=== PATIENT | female | born 1975 | race Caucasian/White ===

== ENCOUNTER 2018-11-03 10:03 | Emergency (ER) | payer OTHER, SELFPAY ==
[2018-11-03 10:15] VITALS: BP 132/78; PULSE 75; RESP 20; TEMP 36.3; O2SAT 96
--- NOTE | 2018-11-03 10:24 | DI.RAD.S_ITS ---
PROCEDURE: XR CHEST 2V INDICATIONS: cough, sob TECHNIQUE: 2 views of the chest were acquired. COMPARISON: None. FINDINGS: Surgical changes and devices: None. Lungs and pleura: Lungs are clear. No pleural effusions or pneumothorax. Mediastinum: Mediastinal contours are normal. Heart size is normal. Bones and chest wall: No suspicious bony abnormalities. Soft tissues appear unremarkable. IMPRESSION: No acute pulmonary process. Dictated by: Gertrudis Chowdhury M.D. on 11/03/2018 at 10:51 Approved by: Gertrudis Chowdhury M.D. on 11/03/2018 at 10:51
--- NOTE | 2018-11-03 10:26 | ED.URI ---
HPI - URI/Sore Throat <JARAD Pearce-BC - Last Filed: 11/03/18 11:52> General Chief Complaint: Upper Respiratory Symptoms Stated Complaint: bharath lowe Time Seen by Provider: 11/03/18 10:17 Source: patient Mode of arrival: ambulatory Limitations: no limitations History of Present Illness HPI Narrative: Patient is a 43-year-old female smoker with history of GERD who presents to the emergency department with a chief complaint of productive cough and shortness of breath for 2-3 days. She states she felt cold coming on 4 days ago and feels like it evolves to something worse. She complains of chest congestion, productive cough, and states she is having coughing fits so bad she becomes incontinent of urine. She denies any related abdominal pain, vomiting or diarrhea. She denies any sore throat that is not affiliated with cough or ear pain. she has not taken anything at home to feel better. She complains of wheezing. She denies any history of asthma, COPD, etc. She states ?I do not go to the doctor? Related Data Previous Rx's Medication Instructions Recorded albuterol sulfate [Ventolin HFA] 2 puff INHALATION Q4-6H PRN #18 11/03/18 gram benzonatate [Tessalon Perles] 200 mg PO BID-TID PRN #30 cap 11/03/18 Allergies Allergy/AdvReac Type Severity Reaction Status Date / Time codeine Allergy Unknown Verified 11/03/18 10:26 Review of Systems <JARAD Pearce-BC - Last Filed: 11/03/18 11:52> Constitutional Denies body ache(s), Denies chills, Reports fatigue, Denies headache(s), Reports lethargy and Denies poor appetite Eyes Denies change in vision, Denies eye discharge, Denies irritation and Denies loss of vision ENT Ears, Nose, Mouth, and Throat: Denies headache(s) Cardiovascular Denies chest pain, Denies irregular heart rhythm, Denies lightheadedness, Denies palpitations, Reports dyspnea and Denies orthopnea Respiratory Reports as per HPI, Reports chest congestion, Reports cough, Reports pain with cough, Reports dyspnea and Reports wheezing Gastrointestinal Gastrointestinal: Denies abdominal pain, Denies change in bowel habits, Denies diarrhea, Denies nausea and Denies vomiting Genitourinary Denies hematuria, Denies flank pain, Denies urinary incontinence and Denies urinary urgency Musculoskeletal Denies back pain, Denies muscle weakness, Denies numbness and Denies tingling Integumentary/Breasts Denies pruritus, Denies erythema, Denies rash and Denies wounds Neurologic Denies headache(s), Denies loss of vision, Denies numbness and Denies tingling Endocrine Reports fatigue and Denies palpitations Hematologic/Lymphatic Denies easy bruising Allergic/Immunologic Reports wheezing PFSH <MANDO Pearce - Last Filed: 11/03/18 11:52> Medical History (Updated 11/03/18 @ 11:28 by MANDO Pearce) H/O gastroesophageal reflux (GERD) (Acute) Social History Smoking Status: Current every day smoker Social History Smoking Status: Current every day smoker Exam <MANDO Pearce - Last Filed: 11/03/18 11:52> Initial Vital Signs Initial Vital Signs: Vital Signs Temperature 97.3 F L 11/03/18 10:15 Pulse Rate 75 11/03/18 10:15 Respiratory Rate 20 11/03/18 10:15 Blood Pressure 132/78 11/03/18 10:15 Pulse Oximetry 96 11/03/18 10:15 Const General: cooperative and well developed Nutritional Appearance: well nourished Orientation: alert, awake, oriented x3 and not confused [facility] Head: normocephalic and atraumatic Ears: external ears normal and TM's normal bilaterally Nose: external nose normal and No nasal discharge Face and sinus: sinuses nontender, face symmetric, no sinus tenderness and No dry mucous membranes Mouth: oral mucosae normal and moist mucous membranes Teeth and gingiva: dentition normal Throat: tonsils normal and uvula midline Eyes General: appearance normal, both eyes and all related structures Eyelids: eyelids normal Conjunctivae: conjunctivae normal Sclera: sclerae normal Pupils: PERRL EOM: EOM intact bilaterally Neck Neck: normal visual inspection, trachea midline, No lymphadenopathy, No midline deformity and No JVD Lymphatic: No lymphedema Chest Chest: normal inspection of the chest Resp Effort & Inspection: normal respiratory effort, able to speak in complete sentences, cough Quality of cough: actively coughing, no grunting, not labored, no nasal flaring, no respiratory distress and no use of accessory muscles Auscultation: clear to auscultation bilaterally, no rales, no rhonchi and wheezes expiratory wheezes, inspiratory wheezes and upper bilaterally Cardio Rate: regular rate Rhythm: regular rhythm Heart Sounds: no click, no gallops, no murmurs and no rubs Pulses: normal peripheral pulses GI Inspection: non-distended Palpation: soft, no hepatosplenomegaly, No guarding, No pulsatile mass and No tender Auscultation: normal bowel sounds Neuro General: alert, oriented x3, gait normal and no focal motor deficits Speech: speech normal Psych Appearance: well kempt Mental Status: mental status grossly normal Attitude: cooperative Thought Content: normal and suicidality Judgment: judgment good <Cyndie Torres MD - Last Filed: 11/03/18 16:24> Initial Vital Signs Initial Vital Signs: Vital Signs Temperature 97.3 F L 11/03/18 10:15 Pulse Rate 75 11/03/18 10:15 Respiratory Rate 20 11/03/18 10:15 Blood Pressure 132/78 11/03/18 10:15 Pulse Oximetry 96 11/03/18 10:15 Course <MANDO Pearce - Last Filed: 11/03/18 11:52> Orders Ordered: ED Orders 11/03/18 10:24 XR chest 2V Stat RT Consult Eval and Treat Now 11/03/18 10:34 Influenza A and B by PCR Rapid Stat Discontinued Medications Albuterol/Ipratropium (Duoneb) 3 ml INH Q1H PRN PRN Reason: Shortness Of Breath Last Admin: 11/03/18 10:31 Dose: 3 ml Vital Signs - 8 hr 11/03/18 10:15 11/03/18 11:30 Temperature 97.3 F L Pulse Rate 75 76 Respiratory Rate 20 18 Blood Pressure 132/78 Pulse Oximetry 96 98 <Cyndie Torres MD - Last Filed: 11/03/18 16:24> Orders Ordered: ED Orders 11/03/18 10:24 XR chest 2V Stat RT Consult Eval and Treat Now 11/03/18 10:34 Influenza A and B by PCR Rapid Stat Discontinued Medications Albuterol/Ipratropium (Duoneb) 3 ml INH Q1H PRN PRN Reason: Shortness Of Breath Last Admin: 11/03/18 10:31 Dose: 3 ml Vital Signs - 8 hr 11/03/18 10:15 11/03/18 11:30 Temperature 97.3 F L Pulse Rate 75 76 Respiratory Rate 20 18 Blood Pressure 132/78 Pulse Oximetry 96 98 MDM - URI/Sore Throat <MANDO Pearce - Last Filed: 11/03/18 11:52> Lab Data Lab Results 11/03/18 Range/Units 10:34 Influenza A & B (PCR) Negative (Negative) Imaging Data Chest x-ray: Radiologist's impression: [address] [address] XRay Report Signed Patient: Kat Cisse MMR#: [id number] : 1975Acct:[id number] Age/Sex: 43 / FDate of Service: 11/03/18 Loc: ED Accession Number: [id number] Procedure: XR chest 2V Ordering Provider: Ami Galan PROCEDURE: XR CHEST 2V INDICATIONS: cough, sob TECHNIQUE: 2 views of the chest were acquired. COMPARISON: None. FINDINGS: Surgical changes and devices: None. Lungs and pleura: Lungs are clear. No pleural effusions or pneumothorax. Mediastinum: Mediastinal contours are normal. Heart size is normal. Bones and chest wall: No suspicious bony abnormalities. Soft tissues appear unremarkable. IMPRESSION: No acute pulmonary process. Dictated by: Gertrudis Chowdhury M.D. on 11/03/2018 at 10:51 Approved by: Gertrudis Chowdhury M.D. on 11/03/2018 at 10:51 [facility] Narrative Medical decision making narrative: The patient is a 43-year-old female smoker who presents with a chief complaint of cough for a few days. She is afebrile, hemodynamically stable a nontoxic appearing the emergency department. She has no acute findings on her chest x-ray. She has a negative flu swab. She did respond well to a nebulizer treatment given in the emergency department. I encouraged her to stop smoking. I did give her prescription of Ventolin, as well as a prescription of Tessalon Perles. I encouraged her to obtain a primary care physician gave her contact information for the health client resource specialist. I discussed at length return precautions of chest pain, difficulty breathing, fever. Patient had no questions or concerns upon discharge. <Cyndie Torres MD - Last Filed: 11/03/18 16:24> Lab Data Lab Results 11/03/18 Range/Units 10:34 Influenza A & B (PCR) Negative (Negative) Discharge Plan Departure Patient Disposition: Home Clinical Impression: Wheezing, Bronchitis Discharge Date/Time: 11/03/18 11:33 Interventions: ED Discharge Assessment Last Done: 11/03/18 11:30 Instructions: DI for Acute Bronchitis, DI for Viral Upper Respiratory Infection -- Adult Activity Restrictions/Additional Instructions: Your chest x-ray came back normal today. Your flu swab came back normal. Please follow up with primary care provider. Please monitor for fever, vomiting, diarrhea or signs of systemic illness. Come back to the emergency department for any acute concerns including chest pain, severe shortness of breath etc. Please take [id number] medications and remedies as needed and able. I have given you a prescription for an inhaler, as well as a prescription for cough medication. Please follow up with primary care provider. If you need one you can always contact the health client resource specialist at [facility]. The phone number is [phone]. Prescriptions: New benzonatate [Tessalon Perles] 100 mg capsule 200 mg PO BID-TID PRN (Reason: cough) Qty: 30 RF: 0 albuterol sulfate [Ventolin HFA] 90 mcg/actuation HFA aerosol inhaler 2 puff INHALATION Q4-6H PRN (Reason: shortness of breath or wheezing) Qty: 18 RF: 0
[2018-11-03] MEDS: ALBUTEROL/IPRATROPIUM 3 ML AMPUL INH (10:31)
--- NOTE | 2018-11-03 10:31 | ED_ITS ---
HPI - URI/Sore Throat <JARAD Pearce-BC - Last Filed: 11/03/18 11:52> General Chief Complaint: Upper Respiratory Symptoms Stated Complaint: bharath lowe Time Seen by Provider: 11/03/18 10:17 Source: patient Mode of arrival: ambulatory Limitations: no limitations History of Present Illness HPI Narrative: Patient is a 43-year-old female smoker with history of GERD who presents to the emergency department with a chief complaint of productive cough and shortness of breath for 2-3 days. She states she felt cold coming on 4 days ago and feels like it evolves to something worse. She complains of chest congestion, productive cough, and states she is having coughing fits so bad she becomes incontinent of urine. She denies any related abdominal pain, vomiting or diarrhea. She denies any sore throat that is not affiliated with cough or ear pain. she has not taken anything at home to feel better. She complains of wheezing. She denies any history of asthma, COPD, etc. She states ?I do not go to the doctor? Related Data Previous Rx's Medication Instructions Recorded albuterol sulfate [Ventolin HFA] 2 puff INHALATION Q4-6H PRN #18 11/03/18 gram benzonatate [Tessalon Perles] 200 mg PO BID-TID PRN #30 cap 11/03/18 Allergies Allergy/AdvReac Type Severity Reaction Status Date / Time codeine Allergy Unknown Verified 11/03/18 10:26 Review of Systems <JARAD Pearce-BC - Last Filed: 11/03/18 11:52> Constitutional Denies body ache(s), Denies chills, Reports fatigue, Denies headache(s), Reports lethargy and Denies poor appetite Eyes Denies change in vision, Denies eye discharge, Denies irritation and Denies loss of vision ENT Ears, Nose, Mouth, and Throat: Denies headache(s) Cardiovascular Denies chest pain, Denies irregular heart rhythm, Denies lightheadedness, Denies palpitations, Reports dyspnea and Denies orthopnea Respiratory Reports as per HPI, Reports chest congestion, Reports cough, Reports pain with cough, Reports dyspnea and Reports wheezing Gastrointestinal Gastrointestinal: Denies abdominal pain, Denies change in bowel habits, Denies diarrhea, Denies nausea and Denies vomiting Genitourinary Denies hematuria, Denies flank pain, Denies urinary incontinence and Denies urinary urgency Musculoskeletal Denies back pain, Denies muscle weakness, Denies numbness and Denies tingling Integumentary/Breasts Denies pruritus, Denies erythema, Denies rash and Denies wounds Neurologic Denies headache(s), Denies loss of vision, Denies numbness and Denies tingling Endocrine Reports fatigue and Denies palpitations Hematologic/Lymphatic Denies easy bruising Allergic/Immunologic Reports wheezing PFSH <MANDO Pearce - Last Filed: 11/03/18 11:52> Medical History (Updated 11/03/18 @ 11:28 by MANDO Pearce) H/O gastroesophageal reflux (GERD) (Acute) Social History Smoking Status: Current every day smoker Social History Smoking Status: Current every day smoker Exam <MANDO Pearce - Last Filed: 11/03/18 11:52> Initial Vital Signs Initial Vital Signs: Vital Signs Temperature 97.3 F L 11/03/18 10:15 Pulse Rate 75 11/03/18 10:15 Respiratory Rate 20 11/03/18 10:15 Blood Pressure 132/78 11/03/18 10:15 Pulse Oximetry 96 11/03/18 10:15 Const General: cooperative and well developed Nutritional Appearance: well nourished Orientation: alert, awake, oriented x3 and not confused [facility] Head: normocephalic and atraumatic Ears: external ears normal and TM's normal bilaterally Nose: external nose normal and No nasal discharge Face and sinus: sinuses nontender, face symmetric, no sinus tenderness and No dry mucous membranes Mouth: oral mucosae normal and moist mucous membranes Teeth and gingiva: dentition normal Throat: tonsils normal and uvula midline Eyes General: appearance normal, both eyes and all related structures Eyelids: eyelids normal Conjunctivae: conjunctivae normal Sclera: sclerae normal Pupils: PERRL EOM: EOM intact bilaterally Neck Neck: normal visual inspection, trachea midline, No lymphadenopathy, No midline deformity and No JVD Lymphatic: No lymphedema Chest Chest: normal inspection of the chest Resp Effort & Inspection: normal respiratory effort, able to speak in complete sentences, cough Quality of cough: actively coughing, no grunting, not labored, no nasal flaring, no respiratory distress and no use of accessory muscles Auscultation: clear to auscultation bilaterally, no rales, no rhonchi and wheezes expiratory wheezes, inspiratory wheezes and upper bilaterally Cardio Rate: regular rate Rhythm: regular rhythm Heart Sounds: no click, no gallops, no murmurs and no rubs Pulses: normal peripheral pulses GI Inspection: non-distended Palpation: soft, no hepatosplenomegaly, No guarding, No pulsatile mass and No tender Auscultation: normal bowel sounds Neuro General: alert, oriented x3, gait normal and no focal motor deficits Speech: speech normal Psych Appearance: well kempt Mental Status: mental status grossly normal Attitude: cooperative Thought Content: normal and suicidality Judgment: judgment good <Cyndie Torres MD - Last Filed: 11/03/18 16:24> Initial Vital Signs Initial Vital Signs: Vital Signs Temperature 97.3 F L 11/03/18 10:15 Pulse Rate 75 11/03/18 10:15 Respiratory Rate 20 11/03/18 10:15 Blood Pressure 132/78 11/03/18 10:15 Pulse Oximetry 96 11/03/18 10:15 Course <MANDO Pearce - Last Filed: 11/03/18 11:52> Orders Ordered: ED Orders 11/03/18 10:24 XR chest 2V Stat RT Consult Eval and Treat Now 11/03/18 10:34 Influenza A and B by PCR Rapid Stat Discontinued Medications Albuterol/Ipratropium (Duoneb) 3 ml INH Q1H PRN PRN Reason: Shortness Of Breath Last Admin: 11/03/18 10:31 Dose: 3 ml Vital Signs - 8 hr 11/03/18 10:15 11/03/18 11:30 Temperature 97.3 F L Pulse Rate 75 76 Respiratory Rate 20 18 Blood Pressure 132/78 Pulse Oximetry 96 98 <Cyndie Torres MD - Last Filed: 11/03/18 16:24> Orders Ordered: ED Orders 11/03/18 10:24 XR chest 2V Stat RT Consult Eval and Treat Now 11/03/18 10:34 Influenza A and B by PCR Rapid Stat Discontinued Medications Albuterol/Ipratropium (Duoneb) 3 ml INH Q1H PRN PRN Reason: Shortness Of Breath Last Admin: 11/03/18 10:31 Dose: 3 ml Vital Signs - 8 hr 11/03/18 10:15 11/03/18 11:30 Temperature 97.3 F L Pulse Rate 75 76 Respiratory Rate 20 18 Blood Pressure 132/78 Pulse Oximetry 96 98 MDM - URI/Sore Throat <MANDO Pearce - Last Filed: 11/03/18 11:52> Lab Data Lab Results 11/03/18 Range/Units 10:34 Influenza A & B (PCR) Negative (Negative) Imaging Data Chest x-ray: Radiologist's impression: [address] [address] XRay Report Signed Patient: Kat Cisse MMR#: [id number] : 1975Acct:[id number] Age/Sex: 43 / FDate of Service: 11/03/18 Loc: ED Accession Number: [id number] Procedure: XR chest 2V Ordering Provider: Ami Galan PROCEDURE: XR CHEST 2V INDICATIONS: cough, sob TECHNIQUE: 2 views of the chest were acquired. COMPARISON: None. FINDINGS: Surgical changes and devices: None. Lungs and pleura: Lungs are clear. No pleural effusions or pneumothorax. Mediastinum: Mediastinal contours are normal. Heart size is normal. Bones and chest wall: No suspicious bony abnormalities. Soft tissues appear unremarkable. IMPRESSION: No acute pulmonary process. Dictated by: Gertrudis Chowdhury M.D. on 11/03/2018 at 10:51 Approved by: Gertrudis Chowdhury M.D. on 11/03/2018 at 10:51 [facility] Narrative Medical decision making narrative: The patient is a 43-year-old female smoker who presents with a chief complaint of cough for a few days. She is afebrile, hemodynamically stable a nontoxic appearing the emergency department. She has no acute findings on her chest x-ray. She has a negative flu swab. She did respond well to a nebulizer treatment given in the emergency department. I encouraged her to stop smoking. I did give her prescription of Ventolin, as well as a prescription of Tessalon Perles. I encouraged her to obtain a primary care physician gave her contact information for the health rn clinical resource. I discussed at length return precautions of chest pain, difficulty breathing, fever. Patient had no questions or concerns upon discharge. <Cyndie Torres MD - Last Filed: 11/03/18 16:24> Lab Data Lab Results 11/03/18 Range/Units 10:34 Influenza A & B (PCR) Negative (Negative) Discharge Plan Departure Patient Disposition: Home Clinical Impression: Wheezing, Bronchitis Discharge Date/Time: 11/03/18 11:33 Interventions: ED Discharge Assessment Last Done: 11/03/18 11:30 Instructions: DI for Acute Bronchitis, DI for Viral Upper Respiratory Infection -- Adult Activity Restrictions/Additional Instructions: Your chest x-ray came back normal today. Your flu swab came back normal. Please follow up with primary care provider. Please monitor for fever, vomiting, diarrhea or signs of systemic illness. Come back to the emergency department for any acute concerns including chest pain, severe shortness of breath etc. Please take [id number] medications and remedies as needed and able. I have given you a prescription for an inhaler, as well as a prescription for cough medication. Please follow up with primary care provider. If you need one you can always contact the health rn clinical resource at [facility]. The phone number is [phone]. Prescriptions: New benzonatate [Tessalon Perles] 100 mg capsule 200 mg PO BID-TID PRN (Reason: cough) Qty: 30 RF: 0 albuterol sulfate [Ventolin HFA] 90 mcg/actuation HFA aerosol inhaler 2 puff INHALATION Q4-6H PRN (Reason: shortness of breath or wheezing) Qty: 18 RF: 0
[2018-11-03 10:54] LABS: Influenza A and B by PCR Rapid Negative (Negative)
[2018-11-03 11:30] VITALS: PULSE 76; RESP 18; O2SAT 98
== END 2018-11-03 11:33 | disposition home or self-care (01) ==
PROVIDERS: Emergency Provider Nurse Practitioner Family
DX: J40 Bronchitis, not specified as acute or chronic (principal)
CPT/HCPCS: 71046; 87400; 99282; 99283

== ENCOUNTER → 2018-12-01 08:10 | Outpatient (CLI) | payer OTHER, SELFPAY ==
[2018-12-01 08:29] LABS: Add Manual Diff / Slide Review NO; Basophils Absolute Auto 100 /uL (0-100); Basophils Percent Auto 0.7 % (0-2); Eosinophils Absolute Auto 200 /uL (0-450); Eosinophils Percent Auto 2.3 % (2-4); Hemoglobin 14.8 g/dL (12.0-16.0); Lymphocytes Absolute Auto 3400 /uL (1100-4500); Lymphocytes Percent Auto 41.3 % (25-40); Mean Corpuscular HGB Conc 34.5 % (30-36); Mean Corpuscular Hemoglobin 31.9 PG (26-34); Mean Corpuscular Volume 92.5 fL (80-100); Monocytes Absolute Auto 700 /uL (0-900); Monocytes Percent Auto 8.5 % (3-14); Neutrophils Absolute Auto 3900 /uL (1500-7000); Neutrophils Percent Auto 47.2 % (50-75); Platelet Count 234 X10^3/uL (150-400); Red Blood Cell Count 4.65 X10^6/uL (4.0-5.2); Red Cell Distribution Width 12.9 % (11.6-14.8); White Blood Cell Count 8.3 X10^3/uL (4.5-11.0)
[2018-12-01 08:56] LABS: Free T4, Direct Thyroxine 0.95 ng/dL (0.78-2.19)
[2018-12-01 09:09] LABS: Thyroid Stimulating Hormone 5.93 uIU/mL (0.47-4.68)
[2018-12-01 10:57] LABS: BUN Creatinine Ratio 12.5 (6-22); Blood Urea Nitrogen 10 mg/dL (7-17); Calcium 9.2 mg/dL (8.4-10.2); Carbon Dioxide 25 mmol/L (22-32); Chloride 104 mmol/L (98-107); Cholesterol 205 mg/dL (140-199); Estimated Glomerular Filt Rate > 60.0 mL/min (>60); Glucose 114 mg/dL (70-100); HDL Cholesterol 45 mg/dL (40-60); HEMOLYSIS < 15 (0-50); LDL Cholesterol Calculated 131 mg/dL (<100); Potassium 4.4 mmol/L (3.4-5.1); Sodium 138 mmol/L (137-145); Triglycerides 145 mg/dL (35-150)
[2018-12-01 11:14] LABS: Vitamin D 25 Hydroxy (D3) 20.3 ng/mL (30.0-100.0)
[2018-12-03 17:27] LABS: Triiodothyronine T3 Total 162 ng/dL (76-181)
== END ==
LOC: LAB 08:11
PROVIDERS: Visit Provider Internal Medicine
DX: E55.9 Vitamin D deficiency, unspecified (principal); R53.83 Other fatigue; E03.9 Hypothyroidism, unspecified; E66.9 Obesity, unspecified
CPT/HCPCS: 36415; 80048; 80061; 82306; 84439; 84443; 84480; 85025

== ENCOUNTER → 2021-01-30 14:41 | Outpatient (CLI) | payer OTHER, MEDICAID, SELFPAY ==
[2021-01-30 15:45] LABS: COVID19 -Nasal RAPID Negative (Negative)
== END ==
PROVIDERS: PCP Registered Nurse Diabetes Educator; Visit Provider Surgery
DX: Z20.822 Contact with and (suspected) exposure to COVID-19 (principal)
CPT/HCPCS: 87635; C9803

== ENCOUNTER 2021-01-31 12:25 | Day surgery (SDC) | payer OTHER, MEDICAID, SELFPAY ==
[2021-01-31] VITALS (8 sets, daily range): BP systolic 106–138; BP diastolic 60–88; PULSE 57–81; RESP 14–18; TEMP 36.2–36.8; O2SAT 95–98; BMI 36.0
--- NOTE | 2021-01-31 | PATH_ITS ---
[facility] Accession Number: [id number] . 01 Material submitted: . rectum - RECTAL POLYP . 02 Diagnosis: Rectum, Polyp, Biopsy: Hyperplastic polyp. [facility] 02/05/2021 1531 Local . 02 Electronically signed: . Anna Blanco MD, Pathologist NPI- [id number] . 01 Gross description: . RECTAL POLYP: Received in formalin is 1 fragment(s) of richter, soft tissue measuring 0.9 x 0.2 x 0.2 cm submitted entirely in 1 cassette(s) /RUTH 02/01/2021 0832 Local . 02 Pathologist provided ICD-10: K62.1 . 02 CPT . 041857 Performed at: [address] [facility] Cyt[facility] [address] [id number] MD Dale Colin MD Phone: [phone] Performed at: 02 [facility] [place] [address] [place], [place] [id number] MD Anna Blanco MD Phone: [phone]
[2021-01-31] MEDS: LACTATED RINGERS 1,000 ML 84 ML IV (12:37)
--- NOTE | 2021-01-31 13:42 | PM.PREOP ---
Pre-operative Note Interval Note History & Physical reviewed/Exam performed by Physician: Yes Changes to H&P: No
[2021-01-31] MEDS: LIDOCAINE 4% SOLN 50 ML 20 ML TOP (13:49)
[2021-01-31] MEDS: fentaNYL 250 MCG/5 ML INJ IV (14:03)
[2021-01-31] MEDS: MIDAZOLAM 5 MG/5 ML VIAL IV (14:03)
[2021-01-31] MEDS: ONDANSETRON 4 MG/2 ML INJ IV ×2 (14:06→14:54)
--- NOTE | 2021-01-31 14:20 | P.OP.ENDO_ITS ---
Operative Date/Time/Diagnoses Date of procedure: 01/31/21 Time of procedure: 14:20 Pre-op diagnosis: dysphasia and rectal bleeding Post-op diagnosis: same Procedure & Clinicians Study performed: Esophagoduodenoscopy and colonoscopy Same procedure as scheduled: Yes Indications: Esophageal dysphagia and blood per rectum Surgeon: Andrea Nieves Procedure Notes Procedure in detail: Medications: Conscious sedation using 8mg IV midazolam and 250mcg IV of fentanyl The history and physical was performed/updated and the patient is ASA class is 2. The procedure was discussed in detail with the patient. Potential risks complications including infection, bleeding, missed diagnosis, perforation, need for surgery, and were explained. Their questions were answered and informed consent was obtained. Patient was brought to the procedure room and placed standard monitoring equipment. The patient's vital signs were monitored continuously throughout the entire procedure. Prior to starting time-out was performed. The patient was placed in the left lateral recumbent position. Procedural sedation was administered. Patient placed in left lateral decubitus position. Time out was performed. Procedural sedation was administered with Versed and Fentanyl. A bite block was placed. the scope was inserted into the mouth and advanced through the esophagus and into the stomach. There was no esophageal stricture and the scope passed e asily from the esophagus into the stomach. The pylorus was intubated and the duodenum was normal to the 2nd portion. The scope was retroflexed within the stomach and there was a small hiatal hernia. No ulcers, or gastritis. The scope was withdrawn into the esophagus the Z line was seen at 40 cm from the incisions. There was no Lange's esophagitis or masses or strictures. Stomach was desufflated and scope removed. Examination began with a thorough inspection of the perianal area there was no evidence of fissures, fistulae, external hemorrhoids or cutaneous malignancy. The colonoscopy scope was then placed into the anal canal and was advanced to the cecum, which was identified by the ileocecal valve, the appendiceal orifice and the confluence of the taenia. The scope was then slowly withdrawn examining colon thoroughly in all directions, irrigating it of any residual stool. 1. Diverticulosis-evidence of recent diverticulitis and most likely source of blood per rectum 2. 5 mm rectal polyp removed with biopsy forceps 3. Grade 1 internal hemorrhoid The patient tolerated the procedure well. They will be discharged once criteria are met. The prep was of good/excellent quality. The withdrawl time was 6 minutes. The sedation time was 28 minutes. Specimen(s): other (Rectal polyp) Complications: none Impression: Colonic polyp Post-procedure Recommendations: Colonscopy in 5 years Disposition: same day surgery
== END 2021-01-31 15:49 | disposition home or self-care (01) ==
PROVIDERS: PCP Registered Nurse Diabetes Educator; Referring Provider Surgery; Visit Provider Surgery
PROC: 0DJ08ZZ Inspection of Upper Intestinal Tract, Via Natural or Artificial Opening Endoscopic (ICD-10-PCS; CPT 43235; principal; 2021-01-31 13:45)
PROC: 0DJD8ZZ Inspection of Lower Intestinal Tract, Via Natural or Artificial Opening Endoscopic (ICD-10-PCS; CPT 45378; 2021-01-31 13:45)
DX: K62.5 Hemorrhage of anus and rectum (principal); R13.19 Other dysphagia; K62.1 Rectal polyp; K64.0 First degree hemorrhoids; K57.30 Diverticulosis of large intestine without perforation or abscess without bleeding
CPT/HCPCS: 43235; 45380; 99152; J2250; J2405; J3010

== ENCOUNTER 2021-06-13 19:46 | Emergency (ER) | payer OTHER, MEDICAID, SELFPAY ==
[2021-06-13 19:55] VITALS: BP 174/84; PULSE 102; RESP 14; TEMP 37.1; O2SAT 98; BMI 36.0
[2021-06-13] MEDS: AMOXICILLIN/CLAV 875/125 MG 1 TAB PO (21:06)
--- NOTE | 2021-06-14 02:42 | ED_ITS ---
HPI - Dental/Oral General Chief complaint: Dental/Oral Stated complaint: facial swelling, pain Time Seen by Provider: 06/13/21 19:48 Source: patient Mode of arrival: Ambulatory Limitations: no limitations History of Present Illness HPI Narrative: 45-year-old female smoker presents with significant other and a chief complaint of some dental pain over the past week or so and now some left lower jaw swelling over the course of the day. She has no fever or chills. She has increased pain with opening and closing her mouth. She denies any trouble breathing or swallowing. Teeth map: 1. Related Data Home Medications Medication Instructions Recorded Confirmed omeprazole 20 mg capsule,delayed 40 mg PO DAILY cap 12/19/20 01/31/21 release Previous Rx's Medication Instructions Recorded bupropion HCl 150 mg 24 hr tablet, 150 mg PO QAM #60 tab 12/19/20 extended release (Wellbutrin XL) amoxicillin 875 mg-potassium 1 tab PO BID #20 tab 06/13/21 clavulanate 125 mg tablet (Augmentin) ketorolac 10 mg tablet 10 mg PO Q6H PRN #14 tab 06/13/21 Allergies Allergy/AdvReac Type Severity Reaction Status Date / Time codeine Allergy Unknown Verified 06/13/21 20:01 Review of Systems Review of Systems Narrative: GENERAL: Denies chills, fatigue, malaise, fever, sweats. HEENT: See HPI RESPIRATORY: Denies dyspnea, cough, wheezing, hemoptysis, sputum. CARDIOVASCULAR: Denies chest pain, palpitations, orthopnea, edema, GASTROINTESTINAL: Denies nausea, vomiting, abdominal pain, diarrhea, constipation, melena. : Denies dysuria, frequency, incontinence, hematuria, urinary retention. MUSCULOSKELETAL: denies weakness, joint pain, or bony pain SKIN: Denies rash, skin lesions, or other NEUROLOGIC: Denies weakness, headache, numbness, change in speech, confusion, seizures, incoordination. PSYCHIATRIC: No concerning psychosocial issues. 12 point review of systems is negative except for those stated above Patient History Medical History Ankle pain (~2015) Chronic GERD Depression (~2013) Fibromyalgia (~2015) Foot pain (~2015) Gastric ulcer (~2013) H/O gastroesophageal reflux (GERD) (~2013) Hiatal hernia Surgical History Anesthesia History of cholecystectomy (~1999) Hx of breast surgery (~2001) Hx of hysterectomy (~2013) Family History Father Hypertension Mother Diabetes mellitus Grandmother Breast cancer Grandfather History of heart disease Social History marital status: household members: spouse Smoking Status: Current every day smoker alcohol intake: current additional social history: 12/19/2020 She lives in [place], [place] with her and kids. 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 She is working a quite excessive number of hours, 7 days per week. Her was laid off and she is therefore somewhat stressed about finances. Smoking Status: Current every day smoker alcohol intake frequency: a few times a week Substance Use Type: marijuana Exam Narrative Exam Narrative: GEN: AOx3 and in mild distress EYES: Pupils are equal, round, and reactive to light and accommodation. Extraoccular muscles are intact bilaterally. There is no subconjunctival hemorrhage or exudate. ENT: poor dentition throughout, pain in tooth #20, no palpable or fluctuant abscess intraoral or along left mandible though there is some CHEST: Lungs are clear to auscultation bilaterally and free of wheezes, rales, or rhonchi. Heart rate is regular rhythm, there are no murmurs, clicks, rubs, or gallops. There is no chest wall tenderness. ABD: Abdomen is soft and nontender. There is no guarding or rebound. Bowel fiorella nds are normal in all 4 quadrants. There is no mass or organomegaly. EXT: Full painless ROM of all extremities with no loss of sensation or strength. SKIN: Warm, pink, and dry. No erythema or rash Initial Vital Signs Initial Vital Signs: Vital Signs Temperature 98.7 F 06/13/21 19:55 Pulse Rate 102 H 06/13/21 19:55 Respiratory Rate 14 06/13/21 19:55 Blood Pressure 174/84 H 06/13/21 19:55 Pulse Oximetry 98 06/13/21 19:55 Course Orders Ordered: Discontinued Medications Amoxicillin/Clavulanate Potassium (Amoxicillin/Clav 875/125 Mg) 1 tab PO NOW ONE Stop: 06/13/21 20:27 Last Admin: 06/13/21 21:06 Dose: 1 tab Documented by: YOVANA Vital Signs Vital signs: Vital Signs - 8 hr 06/13/21 19:55 Temperature 98.7 F Pulse Rate 102 H Respiratory Rate 14 Blood Pressure 174/84 H Pulse Oximetry 98 Discharge Plan Departure Patient Disposition: Home Clinical Impression: Dental abscess Instructions: Tooth Abscess, DI for Dental Pain Activity Restrictions/Additional Instructions: *You have been diagnosed with [dental infection] *What to do: *Please continue to take your regular medications as directed. [ x] New medication prescriptions sent to your pharmacy: [[facility] ] [ ] New medication written as a paper prescription [ ] No new medications given *Please follow up with your primary care provider in 2-3 days, call for an appointment. Let them know you were seen in the Emergency Department and that we ask that you be seen in follow up. We will electronically transmit a record of today's note if your PCP is in our system *If you do not have a primary care provider please contact the [facility] line at [phone]. They will ask some questions about your medical history and help get you set up with a doctor in the community. *Return to Emergency Department if you should have any new, worsening or concerning symptoms, such as [fever greater than 101 F, shaking chills, worsening pain, persistent vomiting or other bothersome symptoms] Prescriptions: New amoxicillin-pot clavulanate [Augmentin] 875-125 mg tablet 1 tab PO BID Qty: 20 RF: 0 ketorolac 10 mg tablet 10 mg PO Q6H PRN (Reason: pain) Qty: 14 RF: 0 No Action omeprazole 20 mg capsule,delayed release(DR/EC) 40 mg PO DAILY RF: 0 bupropion HCl [Wellbutrin XL] 150 mg tablet extended release 24 hr 150 mg PO QAM Qty: 60 RF: 1 Referrals: Dennis Abrams ARNP [Primary Care Provider] -
== END 2021-06-13 21:11 | disposition home or self-care (01) ==
PROVIDERS: Emergency Provider Emergency Medicine; PCP Registered Nurse Diabetes Educator
DX: K04.7 Periapical abscess without sinus (principal)
CPT/HCPCS: 99283